=== PATIENT | female | born 1975 | race African-American/Black ===

== ENCOUNTER 2018-03-02 14:08 | Emergency (ER) | payer MEDICAID ==
[~2018-03-02] VITALS: Ht 165.1 cm; Wt 107.0 kg
[2018-03-02 15:00] LABS: BASOPHILS % 0.4 % (0.0-2.0); EOSINOPHILS % 0.8 % (0.0-5.0); HEMATOCRIT. 32.6 % (36.0-48.0); HEMOGLOBIN. 11.1 g/dL (12.0-16.0); LYMPHOCYTES % 23.1 % (20.0-50.0); MEAN CORPUSCULAR HEMOGLOBIN 30.4 pg (28.0-32.0); MEAN CORPUSCULAR VOLUME 89.4 fL (81.0-99.0); MEAN PLATELET VOLUME 8.9 fl (7.4-10.4); MONOCYTES % 7.2 % (2.0-8.0); NEUTROPHILS % 68.5 % (40.0-76.0); PLATELET 276 x1000/uL (130-400); RED BLOOD CELL COUNT 3.65 mill/uL (4.2-5.4); RED CELL DISTRIBUTION WIDTH 14.1 % (11.6-14.6)
[2018-03-02] MEDS ORDERED: KETOROLAC 30MG/ML VIAL IV ONE (15:00)
[2018-03-02 15:02] LABS: CHLORIDE 108 mEq/L (98-107)
[2018-03-02 15:07] LABS: ETHANOL BLOOD < 10 mg/dL
[2018-03-02 15:41] LABS: CLARITY URINE CLEAR (CLEAR); COLOR URINE YELLOW (YELLOW); KETONES URINE NEGATIVE (NEGATIVE); LEUKOCYTE ESTERASE URINE NEGATIVE (NEGATIVE); NITRITE URINE NEGATIVE (NEGATIVE); OCCULT BLOOD URINE NEGATIVE (NEGATIVE); PH URINE 7.5 (4.5-8.0); PROTEIN URINE NEGATIVE (NEGATIVE); SPECIFIC GRAVITY URINE 1.008 (1.005-1.030); UROBILINOGEN URINE 0.2 E.U./dL (0.2-1.0)
[2018-03-02 16:14] LABS: *COCAINE SCREEN URINE NEGATIVE (NEGATIVE); METHADONE URINE SCREEN NEGATIVE (NEGATIVE)
[2018-03-02 16:15] LABS: *AMPHETAMINES SCREEN URINE NEGATIVE (NEGATIVE); *BARBITURATES SCREEN URINE NEGATIVE (NEGATIVE); *BENZODIAZEPINES SCREEN URINE NEGATIVE (NEGATIVE); OPIATES URINE SCREEN NEGATIVE (NEGATIVE); PHENCYCLIDINE URINE SCREEN NEGATIVE (NEGATIVE)
[2018-03-02 16:22] LABS: CANNABINOID URINE SCREEN PRESUMTIVE POSITIVE (NEGATIVE)
[2018-03-02 19:34] VITALS: BP 134/77
== END 2018-03-02 19:36 | disposition home or self-care (01) ==
LOC: ER 14:10
DX: T50.995A Adverse effect of other drugs, medicaments and biological substances, initial encounter (principal); I47.1 Supraventricular tachycardia; F12.10 Cannabis abuse, uncomplicated; Y92.89 Other specified places as the place of occurrence of the external cause
CPT/HCPCS: 36415; 80053; 80305; 81003; 81025; 84484; 85025; 93005; 96374; 99285; G0482; J1885

== ENCOUNTER 2021-11-23 13:29 | Inpatient (IN) | payer MEDICAID, OTHER ==
[~2021-11-23] VITALS: Ht 157.5 cm; Wt 104.3 kg
[2021-11-23 18:20] LABS: BASOPHILS % 0.6 % (0.0-2.0); EOSINOPHILS % 1.1 % (0.0-5.0); HEMATOCRIT. 33.9 % (36.0-48.0); HEMOGLOBIN. 11.6 g/dL (12.0-16.0); LYMPHOCYTES % 36.8 % (20.0-50.0); MEAN CORPUSCULAR VOLUME 87.5 fL (81.0-99.0); MEAN PLATELET VOLUME 8.6 fl (7.4-10.4); MONOCYTES % 6.1 % (2.0-8.0); NEUTROPHILS % 55.4 % (40.0-76.0); PLATELET 327 x1000/uL (130-400); RED BLOOD CELL COUNT 3.87 mill/uL (4.2-5.4); RED CELL DISTRIBUTION WIDTH 14.3 % (11.6-14.6)
[2021-11-23 18:26] LABS: CHLORIDE 107 mEq/L (98-107)
[2021-11-23] MEDS ORDERED: ASPIRIN 325MG EC TABLET PO ONE (21:15)
[2021-11-24 08:25] VITALS: BP 170/91
[2021-11-24] MEDS ORDERED: MULT-1146 MT (09:14)
[2021-11-24] MEDS ORDERED: MAGN400C MT (09:14)
[2021-11-24] MEDS ORDERED: ACETAMINOPHEN 325MG TABLET PO PRN (10:00)
[2021-11-24] MEDS ORDERED: ONDANSETRON HCL 4MG/2ML INJ IV PRN (10:00)
[2021-11-24 12:00] VITALS: BP 166/88
[2021-11-24] MEDS: AMLODIPINE 10MG TABLET PO SCH (14:52)
[2021-11-24 15:51] LABS: *AMPHETAMINES SCREEN URINE NEGATIVE (NEGATIVE); *BARBITURATES SCREEN URINE NEGATIVE (NEGATIVE); *BENZODIAZEPINES SCREEN URINE NEGATIVE (NEGATIVE); *COCAINE SCREEN URINE NEGATIVE (NEGATIVE)
[2021-11-24 15:52] LABS: CANNABINOID URINE SCREEN NEGATIVE (NEGATIVE); METHADONE URINE SCREEN NEGATIVE (NEGATIVE); OPIATES URINE SCREEN NEGATIVE (NEGATIVE); PHENCYCLIDINE URINE SCREEN NEGATIVE (NEGATIVE)
[2021-11-24 16:00] VITALS: BP 118/62
[2021-11-25] VITALS: BP 131/75
[2021-11-25 04:00] VITALS: BP 101/65
[2021-11-25 08:00] VITALS: BP 120/51
[2021-11-25] MEDS ORDERED: ASPIRIN 81MG TABLET PO SCH (09:00)
[2021-11-25] MEDS ORDERED: REGADENOSON 0.4 MG/5 ML IV ONE ×2 (09:15→10:26)
[2021-11-25] MEDS: AMLODIPINE 10MG TABLET PO SCH (09:49)
[2021-11-25] MEDS ORDERED: CAFFEINE CITRATE 20MG/ML 3ML VIAL IV ONE (10:26)
[2021-11-25] MEDS ORDERED: FUROSEMIDE 40MG/4ML VIAL IVP SCH (11:45)
[2021-11-25 14:17] VITALS: BP 111/65
[2021-11-25] MEDS ORDERED: ATORVASTATIN CALCIUM 20MG TABLET PO SCH (21:00)
== END 2021-11-25 14:20 | disposition home or self-care (01) | DRG 203 ==
LOC: ER 13:29 → 7EST 22:20 → EDBEDREQ 22:27 → EDBEDREQTM 22:27 → ENRESERV 11-24 07:12
PROVIDERS: ADMIT Internal Medicine; ATTEND Internal Medicine
DX: M94.0 Chondrocostal junction syndrome [Tietze] (principal); I50.33 Acute on chronic diastolic (congestive) heart failure; I11.0 Hypertensive heart disease with heart failure; D64.9 Anemia, unspecified; R07.89 Other chest pain; I16.0 Hypertensive urgency; Z20.822 Contact with and (suspected) exposure to COVID-19; R00.2 Palpitations; E78.5 Hyperlipidemia, unspecified; E66.9 Obesity, unspecified; Z82.49 Family history of ischemic heart disease and other diseases of the circulatory system; Z68.41 Body mass index [BMI] 40.0-44.9, adult; Z71.3 Dietary counseling and surveillance
CPT/HCPCS: 36415; 71045; 73030; 78452; 80053; 80061; 80305; 83036; 83880; 84484; 85025; 87426; 93005; 93017; 93306; 93970; 99285; A9500; J0706; J2785